=== PATIENT | male | born 1990 ===

== ENCOUNTER → 2021-04-11 | Day surgery (SDC) | payer BC, OTHER ==
[~2021-04-11] VITALS: Ht 190.5 cm; Wt 126.1 kg
[~2021-04-11] MED LIST: KEFLEX PO; ULTRAM50 MG PO
== END | disposition home or self-care (01) ==
LOC: OR 06:18
DX: M79.5 Residual foreign body in soft tissue (principal); E66.01 Morbid (severe) obesity due to excess calories; Z79.2 Long term (current) use of antibiotics; Z91.048 Other nonmedicinal substance allergy status; Y29.XXXA Contact with blunt object, undetermined intent, initial encounter
CPT/HCPCS: 73100; 76000; J0690; J1100; J2250; J2405; J2704; J3010; J7120